=== PATIENT | male | born 1940 | race Caucasian/White ===

== ENCOUNTER → 2020-10-21 | Outpatient (CLI) | payer MEDICARE, OTHER | LOC: EXRD 15:16 | DX: J44.9 Chronic obstructive pulmonary disease, unspecified (principal); A31.0 Pulmonary mycobacterial infection; R91.8 Other nonspecific abnormal finding of lung field | CPT/HCPCS: 71046; 94060; 94729 ==

== ENCOUNTER → 2020-10-29 | Outpatient (CLI) | payer MEDICARE, OTHER | LOC: KOH-I 14:15 | DX: A31.0 Pulmonary mycobacterial infection (principal) | CPT/HCPCS: 71250 ==